=== PATIENT | female | born 1995 | race Caucasian/White ===

== ENCOUNTER → 2024-10-16 | Outpatient (CLI) | payer OTHER, SELFPAY ==
[2024-10-16 15:11] LABS: Hematocrit 40.7 % (37-47); Hemoglobin 13.9 g/dL (12.0-15.0); Mean Corp Hgb Conc 34.2 g/dL (32-36); Mean Corpuscular Hgb 32.1 pg (27.0-32.0); Mean Platelet Vol. 12.1 fl (6.2-12.0); Platelet Count 183 K/mm3 (150-450); RBC Distribution Width CV 11.7 % (11.6-14.6); RBC Distribution Width SD 39.9 fl (35.1-43.9); Red Blood Count 4.33 M/mm3 (4.2-5.4); White Blood Count 3.6 K/mm3 (4.4-11.0)
== END | disposition home or self-care (01) ==
LOC: BWCLAB 13:46
PROVIDERS: PCP Family Medicine; Referring Provider Obstetrics & Gynecology; Visit Provider Obstetrics & Gynecology
DX: Z01.818 Encounter for other preprocedural examination (principal)
CPT/HCPCS: 36415; 85027; 86850; 86900; 86901

== ENCOUNTER 2024-10-27 09:36 | Day surgery (SDC) | payer OTHER, SELFPAY ==
[2024-10-27] VITALS (9 sets, daily range): BP systolic 84–122; BP diastolic 45–84; PULSE 85–96; RESP 16–20; TEMP 36.2–36.8; O2SAT 97–100; BMI 22.4
--- NOTE | 2024-10-27 10:42 | PRE.ANES_ITS ---
ASA Classification* ASA Classification ASA Classification: 2 Assessment & Plan Anesthesia* Anesthesia Assessment Anesthesia Assessment: Discussed sedation and/or anesthesia options, risks, benefits, and alternatives with patient/parents/legal guardian/POA. Questions invited. The patient/parents/legal guardian/POA seems to understand and agrees to proceed with anesthesia plan. Reviewed the physical assessment, medical history, allergy history and patient home medications list prior to surgery/procedure/anesthetic and documented any changes. Performed airway and anesthesia risk assessments. Anesthesia Type Anesthesia Type: MAC History Source History Obtained from:: Patient and Chart Anesthesia Focused Assessment* Temperature: 97.8 F Pulse Rate: 92 Blood Pressure: 110/77 Respiratory Rate: 16 Pulse Ox: 100 Oxygen Delivery Method: Room Air Airway Assessment Mouth opens: 2 cm Mallampati Score: IV Teeth Condition: Intact Neck Range of motion (ROM): Full ROM Comment: Patient has a short temporo-mandibular distance Focused Labs Anesthesia Preop lab: CBC WBC 3.6 K/mm3 (4.4-11.0) L 10/16/24 13:47 RBC 4.33 M/mm3 (4.2-5.4) 10/16/24 13:47 Hgb 13.9 g/dL (12.0-15.0) 10/16/24 13:47 Hct 40.7 % (37-47) 10/16/24 13:47 Plt Count 183 K/mm3 (150-450) 10/16/24 13:47 CHEMISTRY COAG Urine Test Negative Negative 10/27/24 10:09 Pre-Assessment Diagnosis/Proposed Procedure Planned Operative Procedure(s): PELVIC EXAM UNDER ANESTHESIA PARTIAL HYMENECTOMY Anesthesia History 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 When Was Last Pacemaker Check QUESTION #4 FULL TEXT: You/Your Family Experience fever (hyperthermia) with Anesthesia Last Oral Intake Last Oral intake: Last Oral Intake NPO since 00:00 10/27/24 10:22 Meds taken in AM with sips of water? Meds patient instructed to take am of surgery PONV PONV - mortgage servicing specialist: PONV - mortgage servicing specialist Female Yes 10/13/24 09:56 HX of Motion Sickness No 10/13/24 09:56 HX of N/V After Surgery No 10/13/24 09:56 Non-Smoker Yes 10/13/24 09:56 Duration of Surgery greater No 10/13/24 09:56 than 60 minutes Number of Risk Factors 2 10/13/24 09:56 PONV Score Moderate Risk 10/13/24 09:56 Height & Weight Height & Weight: Anesthesia: Height & Weight Height 5 ft 2 in 10/27/24 10:22 Weight: 55.792 kg 10/27/24 10:22 Body Mass Index (BMI) 22.4 10/27/24 10:22 Respiratory Assessment Respiratory Assessment - mortgage servicing specialist: Respiratory Tract Infection Hx - mortgage servicing specialist Hx Respiratory Tract Infection No 10/13/24 09:56 STOP Sleep Apnea STOP Sleep Apnea - mortgage servicing specialist: STOP Sleep Apnea - mortgage servicing specialist Hx Hypertension No 10/13/24 09:56 Hx Sleep Apnea No 10/13/24 09:56 CPAP BIPAP Do you snore loudly (louder No 10/13/24 09:56 than talking or can be heard Do you often feel tired/ No 10/13/24 09:56 fatigued/ sleepy during daytime? Has anyone observed you stop No 10/13/24 09:56 breathing during sleep? STOP Results Negative 10/13/24 09:56 QUESTION #5 FULL TEXT : Do you snore loudly (louder than talking or can be heard through closed doors)? Tobacco Use History Tobacco Use History - mortgage servicing specialist: Tobacco Use History - mortgage servicing specialist Tobacco Use Smoking Status Never smoker 10/13/24 09:56 Hx Tobacco Use No 10/13/24 09:56 Years Smoking Packs Smoked per Day Smoking Cessation Date was within the last 15 years Hx Smoking Cessation Date Hx Smoking Cessation Counseling Hematologic Medial History Hematologic Hx - mortgage servicing specialist: Hematologic Medical Hx - rn documentation Hx of Blood Transfusion No 10/13/24 09:56 Hx of Transfusion in last 3 No 10/13/24 09:56 Months Date of Last Transfusion (if within last 3 months) Ever experience any problems No 10/13/24 09:56 with transfusion(s)? Specify any problems Hx of Preganancy in last 3 No 10/13/24 09:56 Months Nurse Filling Out Transfusion DSCHRIBER 10/13/24 09:56 & Questions: Date: 10/13/24 10/13/24 09:56 Time: 09:58 10/13/24 09:56 Patient unable to answer at this time (ie. confused, unrespo /Reproduction History /Reproductive History - mortgage servicing specialist: /Reproductive Hx- mortgage servicing specialist Hx Now No 10/13/24 09:56 Gestational Age (in weeks): EDC: Hx Hx Para Hx Section SAB No 10/16/24 13:19 PFSH Medical History Anxiety Depression Anemia Easy bruising Migraine headache Non-smoker Hypoglycemia Home Medications ?Medication ?Instructions ?Recorded ?Last Taken ?Type escitalopram oxalate 5 mg tablet 5 mg PO QDAY 07/22/24 10/26/24 History (Lexapro) Allergy/AdvReac Type Severity Reaction Status Date / Time No Known Allergies Allergy Verified 10/27/24 10:21 Family History Grandmother Diabetes Grandfather Diabetes Surgical History History of open heart surgery Social History adopted: No current occupational status: unemployed sexually active: Yes Smoking Status: Never smoker alcohol intake: never substance use type: does not use caffeine: No seatbelt use: always do you feel safe at home: Yes additional social history: - Star Review of Systems (Anesthesia) ROS Narrative System reviewed and no additional complaints, except as documented.
--- NOTE | 2024-10-27 11:45 | HP.PCM_ITS ---
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: No Is patient in pain?: No Feel stressed/tense/nervous/anxious/difficulty sleeping: not at all Allergies No Known Allergies Allergy (Verified 10/16/24 13:20) Medications ?Medication ?Instructions ?Recorded ?Confirmed ?Type escitalopram oxalate 5 mg tablet 5 mg PO QDAY 07/22/24 10/16/24 History (Lexapro) Is last menstrual period known: Yes Last Menstrual Period: 08/31/24 Post menopausal: No Patient : No : No PFSH Medical History Anxiety Depression Anemia Easy bruising Migraine headache Non-smoker Hypoglycemia Surgical History History of open heart surgery Family History Grandmother DiabetesGrandfather Diabetes Social History adopted: No current occupational status: unemployed sexually active: Yes Smoking Status: Never smoker alcohol intake: never substance use type: does not use caffeine: No seatbelt use: always do you feel safe at home: Yes additional social history: - Star VALE partial hymenectomy Details: ARSALAN BECERRA is a 28 year old who presents for preop visit. SHe has a history of dyspareunia, intact hymenal ring. she has been tryingt o have intercourse for the last year with her and has been unable to have penetrative relations. she has never been able to use tmapons and has never had a pelvic exam. she has never had penetrative intercourse before. she has heavy painful menses worsening over the years, lasting 5 days, monthly Female Reproductive History Last Menstrual Period: 08/31/24 History 0 Elective abortions Hx Para 0 Spontaneous abortions Hx # Term Pregnancies Ectopic pregnancies Hx # Pregnancies Multiple births # of living children 0 ROS Const Constitutional: Denies fatigue, fever(s), headache(s), increased appetite, poor appetite, weight gain or weight loss Cardio Card: Denies chest pain Resp Resp: Denies cough or dyspnea GI GI: Reports as per HPI; Denies abdominal pain, constipation, nausea or vomiting : Reports as per HPI; Denies difficulty voiding, dysuria, nipple discharge, urinary frequency, urinary incontinence, urinary hesitancy, urinary urgency, vaginal discharge, vaginal dryness, vaginal odor or vaginal pruritus Skin Skin/Breast: Denies change in hair, breast mass, breast pain, breast skin changes or nipple discharge Exam Const General: cooperative, healthy appearing, comfortable, no acute distress and well developed Nutritional Appearance: average body habitus Orientation: alert HENMT Head: normal to inspection and normocephalic Neck Neck: normal visual inspection and trachea midline Thyroid: thyroid normal Resp Effort & Inspection: normal respiratory effort GI Inspection: normal to inspection and non-distended Palpation: soft and no hepatosplenomegaly External Female Exam: abnormal external appearance (very narrow opening wtih guarding, hypertonus), normal appearance of the urethra and other (possible extra tissue but unclear due to limited exam) Urethra: normal appearance of the urethra Skin General: no rashes or lesions noted Coding Level of Care Code No Charge Diagnoses Dyspareunia due to medical condition in female N94.19 Pelvic floor dysfunction in female M62.89 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 recommend PEUA and partial hymenectomy, PFPT referral (2) Pelvic floor dysfunction in female: Status: Acute Comment: PFPT referral (3) Intact hymenal ring: Status: Acute Comment: plan surgical evaluation Plan After discussing the patient's diagnosis and treatment plan options, patient wishes to proceed with surgical management. I have discussed with the patient the risks, benefits, and alternatives of the procedure which include but are not limited to risks of anesthesia, bleeding, infection, possible damage to bowel, bladder, or surrounding vasculature which could lead to additional surgery to evaluate any complications. Patient agrees to procedure and wishes to proceed. ACOG/uptodate references given for additional information regarding procedure. UPDATE- I have seen the patient and performed any clinically relevant updates to the history and physical exam. Layla Allen MD
[2024-10-27] MEDS: Estrogens,Conj. 1 Tube 1 DOSE (13:15)
[2024-10-27] MEDS: Lidocaine 1% (20 ml mdv) 20 ML Vial (13:15)
--- NOTE | 2024-10-27 13:36 | PCM.POST.ANE ---
Anesthesia: Postop Eval I Current Vital Signs Temperature: 97.2 F Pulse Rate: 86 Blood Pressure: 84/45 Respiratory Rate: 20 Pulse Ox: 98 Oxygen Delivery Method: Room Air Assessment Airway patent: Yes Spontaneous unlabored respirations: Yes Mental status: Asleep nausea: No Vomiting: No Anesthesia Complication: No Fluid Hydration Crystalloid volume administer (ml): 30 Total IV fluid infused: 30 Progress Note Anesthesia document: Postop Eval 1 completed: Yes
--- NOTE | 2024-10-27 13:37 | OP.PCM_ITS ---
Problems Associated Problem List Diagnoses (1) Pelvic floor dysfunction in female: (2) Dyspareunia due to medical condition in female: Procedures Urinary/Genital [id number]: 31891 PARTIAL HYMENECTOMY OR REVISION Operative Report (Standard) Operative Information Date of Procedure: 10/27/24 Pre-Operative Diagnosis: see problem list Post-Operative Diagnosis: same Surgery/Procedure Performed: partial hymenectomy auto motor mechanic: No Type of Anesthesia: MAC RN Documented Start/Stop Times: Operation Date: 10/27/24 11:15 Case Time Into Pre-Op 10/27/24 09:54 Out of Pre-Op 10/27/24 12:28 Anesthesia Start 10/27/24 12:32 Into Room 10/27/24 12:32 Procedure Start 10/27/24 12:57 Procedure End 10/27/24 13:28 Anesthesia End 10/27/24 13:31 Out of Room 10/27/24 13:31 Into Recovery 10/27/24 13:32 Out of Recovery 10/27/24 13:56 Into Phase II Recovery 10/27/24 14:00 Out of Phase II 10/27/24 14:38 Procedure Start Time: 12:57 Procedure Stop Time: 13:28 Select all DRAINS/GRAFTS/IMPLANTS that apply: None (vides drained at beginning) Estimated Blood Loss: 25 Specimen collected: No Description of surgery: Patient was taken to the operating room and placed under MAC anesthesia pelvic exam was performed and intact hymen with narrow vagina was noted. Incisions were made at 4 and 8:00 and 10:00 in the hymen to release and open the hymenal ring. Too much tissue was noted posteriorly and therefore part of the hymen was removed posteriorly and interrupted stitches were placed along the areas of incision passage of 1-1/2 fingers were able to be able to introduced however vaginal narrowing persisted which was suspected due to anatomy and pelvic floor musculature which will be addressed in the future with pelvic floor physical therapy. Pap smear was performed. Hemostasis was noted and no other abnormalities were seen. Patient was awoken and taken recovery in stable condition. Estrogen cream was applied Surgical Findings: intact hymen Complications Complications: No
--- NOTE | 2024-10-27 13:38 | DCINST_ITS ---
Discharge Instructions Diet Discharge Diet: No restrictions DC O2, CPAP, BIPAP needs Home O2 Discharge instructions: No Dressing / Incision Discharge Activity: Return to Normal Activity, May Shower and May Take a Tub Bath (after 1 week) May resume sexual activity in: 4-6 weeks Weight Bearing Status: Weight bearing as tolerated Lifting Restrictions: none Dressing / Incision Call your doctor if you observe: Fever of 101 or Higher, Using more than 1 pad per hour, Shortness of breath and Uncontrolled pain Follow Up Care Please Follow Up With: Layla Allen MD When: Call [phone] to schedule appointment. Test Results: Test results from this visit will be discussed in further detail at your follow- up appointment, if applicable. Discharge Plan Admission Attending Provider: Layla Allen Primary Care Provider: Bhargav Jernigan Instructions Print Language: Turkmen Discharge Orders/Prescriptions Prescriptions: New oxycodone-acetaminophen [Percocet] 5-325 mg tablet 1 tab PO Q6H PRN (Reason: pain) 7 Days Qty: 10 0RF naproxen 500 mg tablet 500 mg PO BID PRN PRN (Reason: Pain) Qty: 30 1RF No Action escitalopram oxalate [Lexapro] 5 mg tablet 5 mg PO QDAY Referrals / Follow Up: Bhargav Jernigan DO [Primary Care Provider] - Disposition Disposition (needs filled in before D/C Order can be placed): Home, Self Care
--- NOTE | 2024-10-27 17:03 | POSTOPAN2_ITS ---
Anesthesia Postop Eval I Sum Postop Eval Completion status Anesthesia document: Postop Eval 1 completed: Yes Anesthesia Postop Eval I Summary Anesthesia Postop Eval I Summary: Anesthesia Postop Eval I: Assessment Summary Airway patent Yes 10/27/24 13:38 SENIOR [email or web address] Spontaneous unlabored Yes 10/27/24 13:38 SENIOR MECHANICAL [email or web address].[email or web address] respirations Mental status Asleep 10/27/24 13:38 SENIOR MECHANICAL [email or web address] nausea No 10/27/24 13:38 SENIOR MECHANICAL [email or web address].[email or web address] Vomiting No 10/27/24 13:38 SENIOR MECHANICAL [email or web address] Anesthesia Postop Eval I: Fluid Summary Crystalloid volume administer 30 10/27/24 13:38 SENIOR MECHANICAL [email or web address].[email or web address] (ml) Colloids volume administered ( ml) Blood Product volume administered (ml) Total IV fluid infused 30 10/27/24 13:38 SENIOR MECHANICAL [email or web address].[email or web address] Anesthesia Postop Eval I: Summary Notes Anesthesia Complication No 10/27/24 13:38 SENIOR MECHANICAL [email or web address].[email or web address] Anesthesia Complication Comment: Post-operative progress note Anesthesia: Postop Eval II Evaluation Mental status: Awake and Calm Pain Level: 1 nausea: No Vomiting: No Complications Anesthesia Complication: No
--- NOTE | 2024-10-27 17:03 | PCM.POSTANE2 ---
Anesthesia Postop Eval I Sum Postop Eval Completion status Anesthesia document: Postop Eval 1 completed: Yes Anesthesia Postop Eval I Summary Anesthesia Postop Eval I Summary: Anesthesia Postop Eval I: Assessment Summary Airway patent Yes 10/27/24 13:38 [email or web address] Spontaneous unlabored Yes 10/27/24 13:38 WILDLIFE [email or web address] respirations Mental status Asleep 10/27/24 13:38 WILDLIFE [email or web address] nausea No 10/27/24 13:38 WILDLIFE REHABILITATOR.[email or web address] Vomiting No 10/27/24 13:38 WILDLIFE [email or web address].[email or web address] Anesthesia Postop Eval I: Fluid Summary Crystalloid volume administer 30 10/27/24 13:38 WILDLIFE [email or web address] (ml) Colloids volume administered ( ml) Blood Product volume administered (ml) Total IV fluid infused 30 10/27/24 13:38 WILDLIFE [email or web address] Anesthesia Postop Eval I: Summary Notes Anesthesia Complication No 10/27/24 13:38 WILDLIFE [email or web address].[email or web address] Anesthesia Complication Comment: Post-operative progress note Anesthesia: Postop Eval II Evaluation Mental status: Awake and Calm Pain Level: 1 nausea: No Vomiting: No Complications Anesthesia Complication: No
[2024-11-04 09:08] LABS: HPV APTIMA, High Risk Negative (Negative)
[2024-11-04 09:56] LABS: HPV Reflexed? YES, CHARGE PATIENT
== END 2024-10-27 14:38 | disposition home or self-care (01) ==
LOC: SDC 09:44 → AC 09:46
PROVIDERS: PCP Family Medicine; Referring Provider Obstetrics & Gynecology; Visit Provider Obstetrics & Gynecology
PROC: (CPT 57410; principal; 2024-10-27 11:05)
DX: N94.10 Unspecified dyspareunia (principal); N89.6 Tight hymenal ring
CPT/HCPCS: 56700; 00940; 86850; 86900; 86901; 87624; 88175; A4216; G0145; J2405

== ENCOUNTER 2024-11-16 14:00 | Outpatient (RCR) | payer OTHER, SELFPAY ==
[2024-10-27 10:27] LABS: Internal QC Validated? YES +Cl - CLEAR BKGD; Pregnancy, Urine Negative Negative
== END 2024-11-16 19:00 | disposition home or self-care (01) ==
LOC: PT 14:00
PROVIDERS: PCP Family Medicine; Referring Provider Obstetrics & Gynecology; Visit Provider Obstetrics & Gynecology
DX: N94.10 Unspecified dyspareunia (principal)
CPT/HCPCS: 81025

== ENCOUNTER → 2025-08-25 | Outpatient (CLI) | payer OTHER, SELFPAY | END | disposition home or self-care (01) | LOC: LABSPEC 16:42 | PROVIDERS: PCP Family Medicine; Visit Provider Nurse Practitioner Family | DX: Z12.4 Encounter for screening for malignant neoplasm of cervix (principal) | CPT/HCPCS: 88175; G0145 ==

== ENCOUNTER → 2025-09-17 | Outpatient (CLI) | payer OTHER, SELFPAY ==
--- OUTSIDE RECORDS SUMMARY | 2025-09-17 09:47 | XMS RPT_ITS | CCD ---
Author Organization [facility]ini[facility] Care Team Providers Care Cuff Slitter Name Role Phone Dr. Bhargav Jernigan DO Primary Care Physician Dr. Bhargav Jernigan DO Referring Provider Lora ARCHITECTURAL COATING FINISHER-C, Talia Attending Physician Bhargav Jernigan Primary Care Unavailable Talia Paulino Attending Unavailable Fracasso, Bhargav Referring Unavailable Marcanthony, Layla Consulting Unavailable Marcanthony, Layla Attending Unavailable Fracasso, Bhargav Primary Care Unavailable Marcanthony, Layla Referring Unavailable Fracasso, Bhargav Primary Care Unavailable Marcanthony, Layla Attending Unavailable Fracasso, Bhargav Referring Unavailable Marcanthony, Layla Attending Unavailable Fracasso, Bhargav Primary Care Unavailable Fracasso, Bhargav Referring Unavailable Fracasso, Bhargav Primary Care Unavailable Marcanthony, Layla Attending Unavailable Fracasso, Bhargav Referring Unavailable Fracasso, Bhargav Primary Care Unavailable Talia Paulino Attending Unavailable Fracasso, Bhargav Referring Unavailable Marcanthony, Layla Attending Unavailable Marcanthony, Layla Referring Unavailable Fracasso, Bhargav Primary Care Unavailable Marcanthony, Layla Attending Unavailable Fracasso, Bhargav Primary Care Unavailable Marcanthony, Layla Referring Unavailable Marcanthony, Layla Attending Unavailable Fracasso, Bhargav Primary Care Unavailable Marcanthony, Layla Referring Unavailable Talia Paulino Attending Unavailable Delon, Bhargav Primary Care Unavailable Medications Current Medications Medication Drug Class(es) Dates Sig (Normalized) Sig (Original) [place] (Nk) (1 source) Start: 08-04-2025 [place] (Nk) A ctive August 04, 2025 12:00am Completed/Discontinued Medications Medication Drug Class(es) Dates Sig (Normalized) Sig (Original) acetaminophen 325 mg / oxyCODONE hydrochloride 5 mg oral tablet (1 source) Opioid Agonist Start: 10-27-2024 End: 11-16-2024 Oxycodone-Acetamin ophen (Percocet) 5-325 mg tablet Discontinued 1 {tbl} PO EVERY 6 HOURS as needed for pain 10 7 0 October 27, 2024 November 16, 2024 12:26pm Pelvic floor dysfunction in female Other specified disorders of muscle escitalopram 5 mg oral tablet (1 source) Serotonin Reuptake Inhibitor Start: 07-22-2024 End: 08-04-2025 take 1 tablet by mouth once daily Escitalopram Oxalate (Lexapro) 5 mg tablet Discontinued 5 mg PO daily July 22, 2024 12:00am August 04, 2025 10:13am naproxen 500 mg oral tablet (1 source) Nonsteroidal Anti-inflammatory Drug Start: 10-27-2024 End: 11-16-2024 take 1 tablet by mouth twice daily as needed for pain Naproxen 500 mg tablet Discontinued 500 mg PO TWICE DAILY NEEDED as needed for Pain 30 1 October 27, 2024 1:00am November 16, 2024 12:26pm Problems Active Problems Problem Classification Problem Date Documented Da te Episodic/Chronic Other connective tissue disease (1 source) Female pelvic floor dysfunction; Translations: [Other specified disorders of muscle] 09-14-2024 Episodic Comment on above: PFPT referral Other female genital disorders (1 source) 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; Translations: [Other specified dyspareunia] 11-23-2024 Chronic Comment on above: s/p hymenectomy Other female genital disorders (1 source) Other specified dyspareunia; Translations: [Other specified dyspareunia] Onset: 03-11-2025 Chronic Other female genital disorders (1 source) Unspecified dyspareunia; Translations: [Unspecified dyspareunia] Onset: 11-17-2024 Chronic Other female genital disorders (1 source) Tight hymenal ring; Translations: [Tight hymenal ring] 09-14-2024 Episodic Comment on above: plan surgical evalua tion Other screening for suspected conditions (not mental disorders or infectious disease) (1 source) Encounter for screening for malignant neoplasm of cervix; Translations: [Encounter for screening for malignant neoplasm of cervix] Onset: 08-30-2025 Episodic Past or Other Problems Problem Classification Problem Date Documented Da te Episodic/Chronic Other connective tissue disease (1 source) Other specified disorders of muscle; Translations: [Other specified disorders of muscle] Onset: 03-11-2025 Episodic Other female genital disorders (1 source) Tight hymenal ring; Translations: [Tight hymenal ring] Onset: 10-16-2024 Episodic Results Test Name Value Interpretation Reference Range Facility PAP I-G w/rfx hrHPV-Aptimaon 09-01-2025 ADEQ Comment Normal . [facility] Comment on above: Order Comment: Speci men Comment: [id number] Specimen Comment: No. of containers..01 ThinPrep Vial Result Comment: Sati sfactory for evaluation. Endocervical and/or squamous metaplastic cells (endocervical component) are present. Performed By: #### L 7400.0353 #### [facility] [address] [place], [address] COMM . Normal . [facility] Comment on above: Order Comment: Speci men Comment: [id number] Specimen Comment: No. of containers..01 ThinPrep Vial Performed By: #### L 7400.0353 #### [facility] [address] [place], [place], [id number] COMMENT TNP Normal . [facility] Comment on above: Order Comment: Speci men Comment: [id number] Specimen Comment: No. of containers..01 ThinPrep Vial Result Comment: The Thin Prep(R) Briquetting Machine Operator was unable to read this specimen. Therefore a manual review was performed. Performed By: #### L 7400.0353 #### [facility] [address] [place], [place], [id number] DIAG Comment Normal . [facility] Comment on above: Order Comment: Speci men Comment: [id number] Specimen Comment: No. of containers..01 ThinPrep Vial Result Comment: NEGA TIVE FOR INTRAEPITHELIAL LESION OR MALIGNANCY. Performed By: #### L 7400.0353 #### [facility] [address] [place], [place], [id number] HPV RFLX Comment Normal . [facility] Comment on above: Order Comment: Speci men Comment: [id number] Specimen Comment: No. of containers..01 ThinPrep Vial Result Comment: The HPV DNA reflex criteria were not met with this specimen result therefore, no HPV testing was performed. Performed at: [address] [id number] Unhairing Machine Operator: Lexy Rodriguez PhD, Phone: [phone] Performed at: [facility] [id number] Unhairing Machine Operator: Ayala Moise MD, Phone: [phone] Performed By: #### L 7400.0353 #### [facility] [address] [place], [place], [address] PAPSMR Comment Normal . [facility] Comment on above: Order Comment: Speci men Comment: [id number] Specimen Comment: No. of containers..01 ThinPrep Vial Result Comment: The Pap smear is a screening test designed to aid in the detection of premalignant and malignant conditions of the uterine cervix. It is not a diagnostic procedure and should not be used as the sole means of detecting cervical cancer. Both false-positive and false-negative reports do occur. Performed By: #### L 7400.0353 #### [facility] [address] [place], [place], [address] PERFORM Comment Normal . [facility] Comment on above: Order Comment: Speci men Comment: [id number] Specimen Comment: No. of containers..01 ThinPrep Vial Result Comment: Chelo Galindo, Cosmetic Account Coordinator (ASCP) Performed By: #### L 7400.0353 #### [facility] [address] [place], [place], [id number] [facility] [facility] Visit Reporton 08-25-2025 [facility] Office Visit Report [facility] [address], [address] [place] [address] OFFICE VISIT Date of Service: 08/25/25 MR#: [id number] Acct: [id number] Name: ARSALAN BECERRA Rep #: [id number] : 1995 Provider: JUAN Andrade Age/Sex: 29/F Location: [facility] Status: Signed Intake Vital Signs 08/04/25 10:05 08/25/25 14:27 08/25/25 14:28 Height 5 ft 2 in 5 ft 2 in 5 ft 2 in Weight: 129 lb 7 oz 131 lb 1 oz BMI 23.6 23.9 BP 115/81 H 111/75 Intake Visit Reasons: Pap Only Copay $30 Center Rep Required: No Is patient in pain?: No Allergies No Known Allergies Allergy (Verified 08/25/25 14:27) Medications ???Medication ???Instructions ???Recorded ???Confirmed ???Type NK 08/04/25 08/25/25 History Is last menstrual period known: Yes Last Menstrual Period: 08/03/25 Post menopausal: No Patient : No : No PFSH Medical History Anxiety Depression Anemia Easy bruising Migraine headache Non-smoker Hypoglycemia Surgical History History of open heart surgery Family History Grandmother Diabetes Grandfather Diabetes Social History adopted: No current occupational status: unemployed sexually active: Yes Smoking Status: Never smoker alcohol intake: never substance use type: does not use caffeine: No seatbelt use: always do you feel safe at home: Yes additional social history: - Star HPI Pap Only Copay $30 Details: ARSALAN BECERRA is a 29 year old who presents for PAP only; No longer on menses. Patient reports she started with a rash on her last menses; appeared like red itchy bumps down her left leg. Similar to bug bites. Was started on atb from PCP. Since resolved but curious if related to menses. Female Reproductive History Last Menstrual Period: 08/03/25 History 0 Elective abortions Hx Para 0 Spontaneous abortions Hx # Term Pregnancies Ectopic pregnancies Hx # Pregnancies Multiple births # of living children 0 ROS Const Constitutional: Denies chills, fatigue or fever(s) Cardio Card: Reports system reviewed and no additional complaints, except as documented Resp Resp: Reports system reviewed and no additional complaints, except as documented GI GI: Reports system reviewed and no additional complaints, except as documented : Reports system reviewed and no additional complaints, except as documented; Denies vaginal discharge, vaginal dryness, vaginal odor or vaginal pruritus Skin Skin/Breast: Reports as per HPI Exam Const General: cooperative, healthy appearing, comfortable, no acute distress, well groomed and well hydrated Nutritional Appearance: well nourished Orientation: alert, awake and oriented x3 Resp Effort Inspection: normal respiratory effort, able to speak in complete sentences and symmetric chest movement GI Inspection: normal to inspection Palpation: soft and no hepatosplenomegaly General: bladder normal to palpation External Female Exam: normal external appearance and normal appearance of the urethra Urethra: normal appearance of the urethra Speculum Exam - Vagina: normal appearance of the vagina, normal vaginal discharge, no lesions and nontender Speculum Exam - Cervix: normal appearance of the cervix, no lesions and no masses Bimanual Exam- Vagina Uterus: normal bimanual exam, uterine size normal, bladder normal to palpation, normal palpation and non-tender Bimanual Exam- Adnexa, other: normal adnexae, no masses, normal and non-tender Pelvic Support: normal Skin General: no rashes or lesions noted Neuro General: patient alert, patient awake, patient oriented x3 and moves all extremities Psych Appearance: grossly normal Mental Status: mental status grossly normal Affect: normal affect Speech and Movement: speech and movement normal Attitude: cooperative Coding Level of Care Code Established Pt Off vis,est,level 3 Patient Type Established Diagnoses Screening for cervical cancer Z12.4 Assessment and Plan Assessment and Plan (1) Screening for cervical cancer: Status: Acute Plan: PAP completed today. Call with results. Orders: Orders PAP I-G w/rfx hrHPV-Aptima Today Z12.4 - Encounter for screening for malignant neoplasm of cervix Plan If raised red pustules present to leg with next menses to call office. None on exam today. 08/25/25 1444 Date Talia Adair Signature: Date (if applicable) (more content not included)... Normal [facility] Visit Reporton 08-04-2025 [facility] Office Visit Report 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: No Is patient in pain?: No Allergies No Known Allergies Allergy (Verified 08/04/25 10:05) Medications ???Medication ???Instructions ???Recorded ???Confirmed ???Type NK 08/04/25 08/04/25 History Is last menstrual period known: Yes Last Menstrual Period: 08/03/25 Post menopausal: No Patient : No : No Control Method: none PFSH Medical History Anxiety Depression Anemia Easy bruising Migraine headache Non-smoker Hypoglycemia Surgical History History of open heart surgery Family History Grandmother Diabetes Grandfather Diabetes Social History adopted: No current occupational status: unemployed sexually active: Yes Smoking Status: Never smoker alcohol intake: never substance use type: does not use caffeine: No seatbelt use: always do you feel safe at home: Yes additional social history: - Star History 0 Elective abortions Hx Para 0 Spontaneous abortions Hx # Term Pregnancies Ectopic pregnancies Hx # Pregnancies Multiple births # of living children 0 HPI Encounter for routine gynecological examination Details: ARSALAN DAMON is a 29 year old who presents for annual exam. She reports since hymenectomy things have improved with intercourse; able to have sex with insertion however reports it still "feels weird". She has not been in PFPT since March. She reports overall improvement however. She states prior to her menses starting she noted some vaginal itching. Last PAP: 2024; unsatisfactory. HPV neg. History of abnormal PAP: no Last mammogram: age 42 History of abnormal mammogram: n/a Colon cancer screening: age 47 Other preventative health care screenings: Dr. Jernigan; PCP Female Reproductive History Last Menstrual Period: 08/03/25 Cycle Length: 21-35 Bleeding Duration: 3 Questions: metrorrhagia: No, sexually active: Yes, dyspareunia: Yes and PCB: No ROS Const Constitutional: Denies chills, fatigue, fever(s), headache(s) or weight loss Eyes Eyes: Denies change in vision ENT ENT: Denies dizziness Resp Resp: Denies cough GI GI: Reports constipation; Denies abdominal pain or nausea : Reports vaginal pruritus (prior to start of menses); Denies difficulty voiding, dysuria, hematuria, nipple discharge, pelvic pain, prolapse symptoms, urinary incontinence, vaginal discharge, vaginal dryness or vaginal odor Skin Skin/Breast: Denies alopecia, rash, breast mass, breast pain, breast skin changes or nipple discharge Neuro Neuro: Denies dizziness Psych Psych: Denies anxiety or depression Endo Endo: Denies cold intolerance, excessive sweating or heat intolerance Exam Const General: cooperative, healthy appearing, comfortable, no acute distress, well groomed and well hydrated Nutritional Appearance: well nourished Orientation: alert, awake and oriented x3 HENMT Head: normal to inspection and normocephalic Ears: hearing grossly normal bilaterally and external ears normal Nose: external nose normal Face and sinus: normal facial exam Eyes General: appearance normal, both eyes and all related structures Neck Neck: normal visual inspection, full ROM and no lymphadenopathy Thyroid: thyroid normal Chest Chest palpation inspection: normal inspection of the chest Breast inspection: normal inspection of the breasts and normal inspection of the axillae Breast palpation: normal palpation of the breasts, normal palpation of the axillae and no axillary lymphadenopathy Resp Effort Inspection: normal respiratory effort, able to speak in complete sentences and symmetric chest movement GI Inspection: normal to inspection Palpation: soft and no hepatosplenomegaly General: deferred (per patient; on menses. ) Skin General: no rashes or lesions noted Neuro General: patient alert, patient awake, patient oriented x3 and moves all extremities Psych Appearance: grossly normal Mental Status: mental status grossly normal Affect: normal affect Speech and Movement: spee (more content not included)... Normal [facility] Visit Reporton 11-16-2024 [place] [facility] Visit Report [facility] [address], [address] [place] [address] OFFICE VISIT Date of Service: 11/16/24 MR#: [id number] Acct: [id number] Name: ARSALAN DAMON Rep #: [id number] : 1995 Provider: Dr. Layla campos MD Age/Sex: 28/F Location: [facility] Status: Signed Intake Vital Signs 10/27/24 10:22 11/16/24 11:24 Height 5 ft 2 in 5 ft 2 in Weight: 129 lb BMI 23.6 BP 109/74 Pulse 72 Pulse Source Monitor Intake Visit Reasons: Post-op Chief Complaint: post op hymenectomy Is patient in pain?: No Allergies No Known Allergies Allergy (Verified 11/16/24 11:26) Medications ???Medication ???Instructions ???Recorded ???Confirmed ???Type escitalopram oxalate 5 mg tablet 5 mg PO QDAY 07/22/24 11/16/24 [facility] Medical History Anxiety Depression Anemia Easy bruising Migraine headache Non-smoker Hypoglycemia Surgical History History of open heart surgery Family History Grandmother Diabetes Grandfather Diabetes Social History adopted: No current occupational status: unemployed sexually active: Yes Smoking Status: Never smoker alcohol intake: never substance use type: does not use caffeine: No seatbelt use: always do you feel safe at home: Yes additional social history: - Star HPI Post-op Details: ARSALAN DAMON is a 28 year old who presents for postop, doing well, tolerated vaginal estrogen therapy. some mild discomfort with sititng but oveall good. stitches dissolved. History 0 Elective abortions Hx Para 0 Spontaneous abortions Hx # Term Pregnancies Ectopic pregnancies Hx # Pregnancies Multiple births # of living children 0 ROS Const Constitutional: Reports system reviewed and no additional complaints, except as documented GI GI: Denies abdominal pain, cramping, nausea or vomiting : Denies pelvic pain, urinary frequency, urinary incontinence, urinary urgency, vaginal discharge, vaginal dryness or vaginal odor Exam Const General: cooperative, healthy appearing, comfortable and no acute distress GI Inspection: normal to inspection Palpation: soft and nontender Other: incisions healed no stitches seen., 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 [facility] Comment on above: Order Comment: Speci men Comment: [id number] Specimen Comment: Source.............Cervix Specimen Comment: Other..............Other Specimen Comment: No. of containers..01 ThinPrep Vial Result Comment: Spec imen processed and examined but unsatisfactory for evaluation of epithelial abnormality because of insufficient cellularity. Performed By: #### L 7400.0377 #### [facility] [address] [place], [address] COMM . Normal . [facility] Comment on above: Order Comment: Speci men Comment: [id number] Specimen Comment: Source.............Cervix Specimen Comment: Other..............Other Specimen Comment: No. of containers..01 ThinPrep Vial Performed By: #### L 7400.0377 #### [facility] [address] [place], [address] COMMENT Comment Normal . [facility] Comment on above: Order Comment: Speci men Comment: [id number] Specimen Comment: Source.............Cervix Specimen Comment: Other..............Other Specimen Comment: No. of containers..01 ThinPrep Vial Result Comment: This liquid based ThinPrep(R) pap test was screened with the use of an image guided system. Performed By: #### L 7400.0377 #### [facility] [address] [place], [place], [id number] DIAG Comment Normal . [facility] Comment on above: Order Comment: Speci men Comment: [id number] Specimen Comment: Source.............Cervix Specimen Comment: Other..............Other Specimen Comment: No. of containers..01 ThinPrep Vial Result Comment: UNSA TISFACTORY FOR EVALUATION. SPECIMEN REPROCESSED FOR INTERPRETATION USING GLACIAL ACETIC ACID (GAA). Performed By: #### L 7400.0377 #### [facility] [address] [place], [place], [address] HPV APTIMA, HR Negative Normal Negative [facility] Comment on above: Order Comment: Speci men Comment: [id number] Specimen Comment: Source.............Cervix Specimen Comment: Other..............Other Specimen Comment: No. of containers..01 ThinPrep Vial Result Comment: This nucleic acid amplification test detects fourteen high- risk HPV types (16,18,31,33,35,39,45,51,52,56,58,59,66,68) without differentiation. Performed at: [address] [id number] Unhairing Machine Operator: Ayala Moise MD, Phone: [phone] Performed at: =[address] [id number] Unhairing Machine Operator: Ayala Moise MD, Phone: [phone] Performed By: #### L 7400.0377 #### [facility] [address] [place], [place], [address] PAPSMR Comment Normal . [facility] Comment on above: Order Comment: Speci men Comment: [id number] Specimen Comment: Source.............Cervix Specimen Comment: Other..............Other Specimen Comment: No. of containers..01 ThinPrep Vial Result Comment: The Pap smear is a screening test designed to aid in the detection of premalignant and malignant conditions of the uterine cervix. It is not a diagnostic procedure and should not be used as the sole means of detecting cervical cancer. Both false-positive and false-negative reports do occur. Performed By: #### L 7400.0377 #### [facility] [address] [place], [place], [address] PERFORM Comment Normal . [facility] Comment on above: Order Comment: Speci men Comment: [id number] Specimen Comment: Source.............Cervix Specimen Comment: Other..............Other Specimen Comment: No. of containers..01 ThinPrep Vial Result Comment: Sherin Archibald, Astronomy Professor (ASCP) Performed By: #### L 7400.0377 #### [facility] [address] [place], [place], [address] QC REV Comment Normal . [facility] Comment on above: Order Comment: Speci men Comment: [id number] Specimen Comment: Source.............Cervix Specimen Comment: Other..............Other Specimen Comment: No. of containers..01 ThinPrep Vial Result Comment: Sajan Mccoy, Supervisory Astronomy Professor (ASCP) Performed By: #### L 7400.0377 #### [facility] [address] [place], [place], [address] RECOMM Comment Normal . [facility] Comment on above: Order Comment: Speci men Comment: [id number] Specimen Comment: Source.............Cervix Specimen Comment: Other..............Other Specimen Comment: No. of containers..01 ThinPrep Vial Result Comment: Sugg est follow up as clinically appropriate. Performed By: #### L 7400.0377 #### [facility] [address] [place], [place], [address] Discharge Instructionon 0 Discharge Instruction [facility] Medical Records Department [address] [place] [address] Instructions for Home/Discharge Instructions 10/27/24 1338 MR#: [id number] Acct: [id number] Name: ARSALAN DAMON Rep #: [id number] : 1995 28 From: Layla Allen MD PCP: Dr. Bhargav Jernigan DO Status:REG SDC Discharge Instructions Diet Discharge Diet: No restrictions DC O2, CPAP, BIPAP needs Home O2 Discharge instructions: No Dressing / Incision Discharge Activity: Return to Normal Activity, May Shower and May Take a Tub Bath (after 1 week) May resume sexual activity in: 4-6 weeks Weight Bearing Status: Weight bearing as tolerated Lifting Restrictions: none Dressing / Incision Call your doctor if you observe: Fever of 101 or Higher, Using more than 1 pad per hour, Shortness of breath and Uncontrolled pain Follow Up Care Please Follow Up With: Layla Allen MD When: Call [phone] to schedule appointment. Test Results: Test results from this visit will be discussed in further detail at your follow-up appointment, if applicable. Discharge Plan Admission Attending Provider: Layla Allen Primary Care Provider: Bhargav Jernigan Instructions Print Language: Armenian Discharge Orders/Prescriptions Prescriptions: New oxycodone-acetaminophen [Percocet] 5-325 mg tablet 1 tab PO Q6H PRN (Reason: pain) 7 Days Qty: 10 0RF naproxen 500 mg tablet 500 mg PO BID PRN PRN (Reason: Pain) Qty: 30 1RF No Action escitalopram oxalate [Lexapro] 5 mg tablet 5 mg PO QDAY Referrals / Follow Up: Bhargav Jernigan DO [Primary Care Provider] - Disposition Disposition (needs filled in before D/C Order can be placed): Home, Self Care 10/27/24 1340 Layla Allen MD CC: Dr. Bhargav Jernigan DO Signed ADDENDUM by Dr. Layla Allen MD on 10/27/24 at 1341 use the vaginal estrogen cream nightly to opening of vagina until tube is gone. use aquaphor or a and d ointment to area of vaginal opening throughout the day wheneve ryou use the bathroom or have any irritation 10/27/24 1341 Layla Allen MD cc: Dr. Bhargav Jernigan DO * Signed Normal [facility] MR/POSTOP.ANEon 10-27-2024 MR/POSTOP.[facility] Medical Records Department [address] [place] [address] Anesthesia Postop Eval I 10/27/24 1336 MR#: [id number] Acct: [id number] Name: ARSALAN DAMON Rep #: [id number] : 1995 28 From: Meme Allen CRNA PCP: Dr. Bhargav Jernigan, DO Status[place] [facility] [place] C Location: [place] [address] Anesthesia: Postop Eval I Current Vital Signs Temperature: 97.2 F Pulse Rate: 86 Blood Pressure: 84/45 Respiratory Rate: 20 Pulse Ox: 98 Oxygen Delivery Method: Room Air Assessment Airway patent: Yes Spontaneous unlabored respirations: Yes Mental status: Asleep nausea: No Vomiting: No Anesthesia Complication: No Fluid Hydration Crystalloid volume administer (ml): 30 Total IV fluid infused: 30 Progress Note Anesthesia document: Postop Eval 1 completed: Yes 10/27/24 1338 Date Meme Adair Signature: Date CC: Signed Normal [facility] MR/[id number] 10-27-2024 MR/POSTOPAN2 [facility] Medical Records Department [address] [facility] [place] [address] Anesthesia Postop Eval II 10/27/24 1703 MR#: [id number] Acct: [id number] Name: ARSALAN DAMON Rep #: [id number] : 1995 28 From: Renzo Diaz MD PCP: Dr. Bhargav Jernigan, DO Status:DEP SDC Y Race: C [place] [facility] [place] Postop Eval I Sum Postop Eval Completion status Anesthesia document: Postop Eval 1 completed: Yes Anesthesia Postop Eval I Summary Anesthesia Postop Eval I Summary: Anesthesia Postop Eval I: Assessment Summary Airway patent Yes 10/27/24 13:38 FEEDER OPERATOR.[email or web address] Spontaneous unlabored Yes 10/27/24 13:38 FEEDER OPERATOR.JSWI respirations Mental status Asleep 10/27/24 13:38 FEEDER OPERATOR.JSWI nausea No 10/27/24 13:38 FEEDER OPERATOR.JSWI Vomiting No 10/27/24 13:38 FEEDER OPERATOR.JSWI Anesthesia Postop Eval I: Fluid Summary Crystalloid volume administer 30 10/27/24 13:38 FEEDER OPERATOR.JSWI (ml) Colloids volume administered ( ml) Blood Product volume administered (ml) Total IV fluid infused 30 10/27/24 13:38 FEEDER OPERATOR.JSWI Anesthesia Postop Eval I: Summary Notes Anesthesia Complication No 10/27/24 13:38 FEEDER OPERATOR.JSWI Anesthesia Complication Comment: Post-operative progress note Anesthesia: Postop Eval II Evaluation Mental status: Awake and Calm Pain Level: 1 nausea: No Vomiting: No Complications Anesthesia Complication: No 10/27/24 1705 Date Renzo Diaz MD Cosigner Signature: Date CC: Signed Normal [facility] Operative Reporton 5 Operative Report [facility] Medical Records Department [address] [place] [address] Operative Report 10/27/24 1337 MR#: [id number] Acct: [id number] Name: ARSALAN DAMON Rep #: [id number] : 1995 28 From: Layla Allen MD PCP: Dr. 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 Type of Anesthesia: MAC RN Documented Start/Stop Times: Operation Date: 10/27/24 11:15 Case Time Into Pre-Op 10/27/24 09:54 Out of Pre-Op 10/27/24 12:28 Anesthesia Start 10/27/24 12:32 Into Room 10/27/24 12:32 Procedure Start 10/27/24 12:57 Procedure End 10/27/24 13:28 Anesthesia End 10/27/24 13:31 Out of Room 10/27/24 13:31 Into Recovery 10/27/24 13:32 Out of Recovery 10/27/24 13:56 Into Phase II Recovery 10/27/24 14:00 Out of Phase II 10/27/24 14:38 Procedure Start Time: 12:57 Procedure Stop Time: 13:28 Select all DRAINS/GRAFTS/IMPLANTS that apply: None (vides drained at beginning) Estimated Blood Loss: 25 Specimen collected: No Description of surgery: Patient was taken to the operating room and placed under MAC anesthesia pelvic exam was performed and intact hymen with narrow vagina was noted. Incisions were made at 4 and 8:00 and 10:00 in the hymen to release and open the hymenal ring. Too much tissue was noted posteriorly and therefore part of the hymen was removed posteriorly and interrupted stitches were placed along the areas of incision passage of 1-1/2 fingers were able to be able to introduced however vaginal narrowing persisted which was suspected due to anatomy and pelvic floor musculature which will be addressed in the future with pelvic floor physical therapy. Pap smear was performed. Hemostasis was noted and no other abnormalities were seen. Patient was awoken and taken recovery in stable condition. Estrogen cream was applied Surgical Findings: intact hymen Complications Complications: No 10/27/24 4711 Cosigner Signature (if applicable): CC: Dr. Bhargav Jernigan DO; Dr. Layla Allen MD Signed [facility] PAP IG w/Reflex HR HPV Aptim aon 10-27-2024 DIAG [facility] Comment on above: Result Comment: PROV IDER ORDERED DIFFERENT TEST Performed By: #### L 400.7600 #### [facility] [address] [place], [address] HPV REFLEXED? Normal [facility] Comment on above: Result Comment: PROV IDER ORDERED DIFFERENT TEST Performed By: #### L 400.7600 #### [facility] [address] [place], [address] ,Urineon 10-27-2024 Beta HCG ( test) Ql (U) Negative Normal [facility] Comment on above: Result Comment: Very dilute urine specimens, as indicated by a low specific gravity, may not contain representative phlebotomy services levels of hCG. If is still suspected, a first morning urine specimen should be collected 48 hours later and tested. Performed By: #### L 400.7600 #### [facility] [address] [place], [address] Type AND Screenon 10-27-2024 Ab SCREEN GEL Negative Normal [facility] Comment on above: Order Comment: S Performed By: #### L 400.7600 #### [facility] [address] [place], [address] CBC-Complete Blood Cnt No Di ffon 10-16-2024 Erythrocyte distribution width (RBC) [Ratio] 11.7 % Normal 11.6-14.6 [facility] Comment on above: Performed By: #### B TSPAT, L100.0500 #### [facility] [address] [place], [address] Hematocrit (Bld) [Volume fraction] 40.7 % Normal 37-47 [facility] Comment on above: Performed By: #### B TSPAT, L100.0500 #### [facility] [address] [place], [address] Hemoglobin (Bld) [Mass/Vol] 13.9 g/dL Normal 12.0-15.0 [facility] Comment on above: Performed By: #### B TSPAT, L100.0500 #### [facility] [address] [place], [address] MCH (RBC) [Entitic mass] 32.1 pg High 27.0-32.0 [facility] Comment on above: Performed By: #### B TSPAT, L100.0500 #### [facility] [address] [place], [address] MCHC (RBC) [Mass/Vol] 34.2 g/dL Normal 32-36 [facility] Comment on above: Performed By: #### B TSPAT, L100.0500 #### [facility] [address] [place], [address] MCV (RBC) [Entitic vol] 94.0 fL Normal 81-99 [facility] Comment on above: Performed By: #### B TSPAT, L100.0500 #### [facility] [address] [place], [address] Platelet mean volume (Bld) [Entitic vol] 12.1 fL High 6.2-12.0 [facility] Comment on above: Performed By: #### B TSPAT, L100.0500 #### [facility] [address] [place], [address] Platelets (Bld) [#/Vol] 183 10*3/uL Normal 150-450 [facility] Comment on above: Performed By: #### B TSPAT, L100.0500 #### [facility] [address] [place], [address] RBC (Bld) [#/Vol] 4.33 10*6/uL Normal 4.2-5.4 [facility] Comment on above: Performed By: #### B TSPAT, L100.0500 #### [facility] [address] [place], [address] RDW SD 39.9 fl Normal 35.1-43.9 [facility] Comment on above: Performed By: #### B TSPAT, L100.0500 #### [facility] [address] [place], [address] WBC (Bld) [#/Vol] 3.6 10*3/uL Low 4.4-11.0 [facility] Comment on above: Performed By: #### B TSPAT, L100.0500 #### [facility] [address] [place], [address] [facility] Reporton 10-16-2024 [facility] Visit Report [facility] [address], [address] [place] [address] OFFICE VISIT Date of Service: 10/16/24 MR#: [id number] Acct: [id number] Name: ARSALAN BECERRA Rep #: [id number] : 1995 Provider: Dr. Layla campos MD Age/Sex: 28/F [place] [facility] Status: Signed Intake Vital Signs 09/07/24 09:17 10/16/24 13:17 10/16/24 13:19 Height 5 ft 2 in 5 ft 2 in 5 ft 2 in Weight: 121 lb BMI 22.1 BP 114/78 Intake Visit Reasons: PEUA partial hymenectomy Center Rep Required: No Is patient in pain?: No Feel stressed/tense/nervous/ anxious/difficulty sleeping: not at all Allergies No Known Allergies Allergy (Verified 10/16/24 13:20) Medications ???Medication ???Instructions ???Recorded ???Confirmed ???Type escitalopram oxalate 5 mg tablet 5 mg PO QDAY 07/22/24 10/16/24 History (Lexapro) Is last menstrual period known: Yes Last Menstrual Period: 08/31/24 Post menopausal: No Patient : No : No PFSH Medical History Anxiety Depression Anemia Easy bruising Migraine headache Non-smoker Hypoglycemia Surgical History History of open heart surgery Family History Grandmother Diabetes Grandfather Diabetes Social History adopted: No current occupational status: unemployed sexually active: Yes Smoking Status: Never smoker alcohol intake: never substance use type: does not use caffeine: No seatbelt use: always do you feel safe at home: Yes additional social history: - Star HPI PEUA partial hymenectomy Details: ARSALAN BECERRA is a 28 year old who presents for preop visit. SHe has a history of dyspareunia, intact hymenal ring. she has been tryingt o have intercourse for the last year with her and has been unable to have penetrative relations. she has never been able to use tmapons and has never had a pelvic exam. she has never had penetrative intercourse before. she has heavy painful menses worsening over the years, lasting 5 days, monthly Female Reproductive History Last Menstrual Period: 08/31/24 History 0 Elective abortions Hx Para 0 Spontaneous abortions Hx # Term Pregnancies Ectopic pregnancies Hx # Pregnancies Multiple births # of living children 0 ROS Const Constitutional: Denies fatigue, fever(s), headache(s), increased appetite, poor appetite, weight gain or weight loss Cardio Card: Denies chest pain Resp Resp: Denies cough or dyspnea GI GI: Reports as per HPI; Denies abdominal pain, constipation, nausea or vomiting : Reports as per HPI; Denies difficulty voiding, dysuria, nipple discharge, urinary frequency, urinary incontinence, urinary hesitancy, urinary urgency, vaginal discharge, vaginal dryness, vaginal odor or vaginal pruritus Skin Skin/Breast: Denies change in hair, breast mass, breast pain, breast skin changes or nipple discharge Exam Const General: cooperative, healthy appearing, comfortable, no acute distress and well developed Nutritional Appearance: average body habitus Orientation: alert HENMT Head: normal to inspection and normocephalic Neck Neck: normal visual inspection and trachea midline Thyroid: thyroid normal Resp Effort Inspection: normal respiratory effort GI Inspection: normal to inspection and non-distended Palpation: soft and no hepatosplenomegaly External Female Exam: abnormal external appearance (very narrow opening wtih guarding, hypertonus), normal appearance of the urethra and other (possible extra tissue but unclear due to limited exam) Urethra: normal appearance of the urethra Skin General: no rashes or lesions noted Coding Level of Care Code No Charge Diagnoses Dyspareunia due to medical condition in female N94.19 Pelvic floor dysfunction in female M62.89 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 recommend PEUA and partial hymenectomy, PFPT referral (2) Pelvic floor dysfunction in female: Status: Acute Comment: PFPT referral (3) Intact hymenal ring: Status: Acute Comment: plan surgical evaluation Plan After discussing the patient's diagnosis and treatment plan options, patient wishes to proceed with surgical management. I have discussed with the patient the risks, benefits, and alternatives of the procedure which include but are not limited to risks of anesthesia, bleeding, infection, possible damage to bowel, bladder, or surrounding va (more content not included)... Normal [facility] Type AND Screen - PAT ONLYon 10-16-2024 Ab SCREEN GEL Negative Normal [facility] Comment on above: Order Comment: Surge ry Date: 10/27/24 Reason for Laboratory Test PREOP [id number] No N N S PELVIC EXAM PARTIAL HYMENECTOMY Performed By: #### B TSPAT, L100.0500 #### [facility] [address] [place], [place], [address] ABO and Rh group Nom (Bld) Blood group B Rh(D) positive Normal [facility] Comment on above: Order Comment: Surge ry Date: 10/27/24 Reason for Laboratory Test PREOP [id number] No N N S PELVIC EXAM PARTIAL HYMENECTOMY Performed By: #### B TSPAT, L100.0500 #### [facility] [address] [place], [place], [address] [facility] Reporton 09-07-2024 [facility] Visit Report [facility] [address], [address] [place] [address] OFFICE VISIT Date of Service: 09/07/24 MR#: [id number] Acct: [id number] Name: ARSALAN BECERRA Rep #: [id number] : 1995 Provider: Dr. Layla campos MD Age/Sex: 28/F Location: [facility] Status: Signed Intake Vital Signs 07/22/24 08:22 09/07/24 09:17 Height 5 ft 2 in 5 ft 2 in Weight: 114 lb 121 lb BMI 20.8 22.1 BP 116/82 H 114/78 Intake Visit Reasons: PERF/NELSON CONSULT PER CB Center Rep Required: No Is patient in pain?: No Allergies No Known Allergies Allergy (Unverified 09/07/24 09:18) Medications ???Medication ???Instructions ???Recorded ???Confirmed ???Type escitalopram oxalate 5 mg tablet 5 mg PO QDAY 07/22/24 09/07/24 History (Lexapro) Is last menstrual period known: Yes Last Menstrual Period: 08/31/24 Post menopausal: No Patient : No : No PFSH Surgical History History of open heart surgery Family History Grandmother Diabetes Grandfather Diabetes Social History adopted: No current occupational status: unemployed sexually active: Yes Smoking Status: Never smoker alcohol intake: never substance use type: does not use caffeine: No seatbelt use: always do you feel safe at home: Yes additional social history: - Star HPI PERF/NELSON CONSULT PER CB Details: ARSALAN BECERRA is a 28 year old who presents for dyspareunia, intact hymenal ring. she has been tryingt o have intercourse for the last year with her and has been unable to have penetrative relations. she has never been able to use tmapons and has never had a pelvic exam. she has never had penetrative intercourse before. she has heavy painful menses worsening over the years, lasting 5 days, monthly Female Reproductive History Last Menstrual Period: 08/31/24 History 0 Elective abortions Hx Para 0 Spontaneous abortions Hx # Term Pregnancies Ectopic pregnancies Hx # Pregnancies Multiple births # of living children 0 ROS Const Constitutional: Denies fatigue, fever(s), headache(s), increased appetite, poor appetite, weight gain or weight loss Cardio Card: Denies chest pain Resp Resp: Denies cough or dyspnea GI GI: Reports as per HPI; Denies abdominal pain, constipation, nausea or vomiting : Reports as per HPI; Denies difficulty voiding, dysuria, nipple discharge, urinary frequency, urinary incontinence, urinary hesitancy, urinary urgency, vaginal discharge, vaginal dryness, vaginal odor or vaginal pruritus Skin Skin/Breast: Denies change in hair, breast mass, breast pain, breast skin changes or nipple discharge Exam Const General: cooperative, healthy appearing, comfortable, no acute distress and well developed Nutritional Appearance: average body habitus Orientation: alert HENMT Head: normal to inspection and normocephalic Neck Neck: normal visual inspection and trachea midline Thyroid: thyroid normal Resp Effort Inspection: normal respiratory effort GI Inspection: normal to inspection and non-distended Palpation: soft and no hepatosplenomegaly External Female Exam: abnormal external appearance (very narrow opening wtih guarding, hypertonus), normal appearance of the urethra and other (possible extra tissue but unclear due to limited exam) Urethra: normal appearance of the urethra Skin General: no rashes or lesions noted Coding Level of Care Code Off vis,est,level 4 Diagnoses Intact hymenal ring N89.6 Dyspareunia due to medical condition in female N94.19 Pelvic floor dysfunction in female M62.89 Assessment and Plan Assessment and Plan (1) Intact hymenal ring: Status: Acute Comment: plan surgical evaluation (2) Dyspareunia due to medical condition in female: Status: Acute Comment: due to pelvic floor hypertonus, narrow anatomy. recommend PEUA and partial hymenectomy, PFPT referral (3) Pelvic floor dysfunction in female: Status: Acute Comment: PFPT referral Plan After discussing the patient's diagnosis and treatment plan options, patient wishes to proceed with surgical management. I have discussed with the patient the risks, benefits, and alternatives of the procedure which include but are not limited to risks of anesthesia, bleeding, infection, possible damage to bowel, bladder, or surrounding vasculature which could lead to additional surgery to evaluate any complications. Patient agrees to procedure and wishes to proceed. ACOG/uptodate references given for additional information regarding procedure. 09/14/24 0711 Date (more content not included)... Normal [facility] Vital Signs Date Time Vital Sign Value Performing Clinician Jenise carrillo 08-04-2025 10:05-0400 Body height 157.[address] Bhargav Jernigan DO Work Phone: [facility] 08-04-2025 10:05-0400 Body mass index (BMI) [Ratio] 23.6 kg/m2 Dr. Bhargav Jernigan DO Work Phone: [facility] 08-04-2025 10:05-0400 Body weight 58.[address] Bhargav Jernigan DO Work Phone: [facility] 08-04-2025 10:05-0400 Diastolic blood pressure 81 mm[Hg] Dr. Bhargav Jernigan DO Work Phone: [facility] 08-04-2025 10:05-0400 Systolic blood pressure 115 mm[Hg] Dr. Bhargav Jernigan DO Work Phone: [facility] Encounters Encounter Date Encounter Type Care Provider Facility Start: 08-31-2025 Encounter for other preprocedural examination Layla [facility] Start: 08-25-2025 End: 08-25-2025 ambulatory Bhargav Jernigan [place] Start: 08-25-2025 End: 08-25-2025 ambulatory Talia Paulino Facility:[facility] Start: 08-04-2025 End: 08-04-2025 Patient encounter procedure Talia MARTINEZ -[facility] Work Phone: Start: 08-04-2025 End: 08-04-2025 Patient encounter status Talia MARTINEZ [facility] Start: 08-04-2025 End: 08-04-[address] Bhargav Jernigan DO Work Phone: -[facility] Start: 11-17-2024 [facility]: 11-16-[facility]24 End: 11-16-2024 ambulatory Layla Allen Facility:[facility] Start: 10-27-2024 ambulatory Layla Burden lity:[facility] Start: 10-27-2024 End: 10-27-2024 ambulatory Layla Allen Facility:[facility] Start: 10-16-2024 End: 10-16-2024 ambulatory Bhargav Jernigan Facility:[facility] Start: 10-16-2024 End: 10-16-2024 ambulatory Layla Allen Facility:[facility] Start: 09-07-2024 End: 09-07-2024 ambulatory Layla Allen Facility:[facility] Payers Date Payer Category Payer Self-pay 2024 Unknown [id number] Unknown [id number] 2.16.8 [id number] Unknown [id number] 2.16.8 [id number] Unknown [id number] 2.16.8 [id number] Unknown [id number] 2.16.8 [id number] Unknown [id number] 2.16.8 [id number] Unknown [id number] 2.16.8 [id number] Unknown [id number] 2.16.8 [id number] Unknown [id number] 2.16.8 [id number] Unknown [id number] 2.16.8 [id number] Unknown [id number] 2.16.8 [id number] Social History Date Type Detail Facility [facility]: [facility] Sex Female [facility] Start: 1995 Sex Assigned At Female [facility] Progress note 08-04-2025 Note Date & Type Note Facility 08-04-2025 Progress note [facility] Clinical Note 10-27-2024 Note Date & Type Note Facility 10-27-2024 Note [facility] Medical Records Department [address] [place] [address] History Physical Exam 10/27/24 1145 MR#: [id number] Acct: [id number] Name: ARSALAN DAMON Rep #: [id number] : 1995 28 From: Layla Allen MD PCP: Dr. Bhargav Jernigan, DO Status:[facility] Location: [place] [address] History and Physical Date of Admission: 10/27/24 Intake Vital Signs 09/07/2409:17 10/16/2413:17 10/16/2413:19 Height 5 ft 2 in 5 ft 2 in 5 ft 2 in Weight: 121 lb BMI 22.1 BP 114/78 Intake Visit Reasons: PEUA partial hymenectomy Center Rep Required: No Is patient in pain?: No Feel stressed/tense/nervous/anxious/difficulty sleeping: not at all Allergies No Known Allergies Allergy (Verified 10/16/24 13:20) Medications ???Medication ???Instructions ???Recorded ???Confirmed ???Type escitalopram oxalate 5 mg tablet 5 mg PO QDAY 07/22/24 10/16/24 History (Lexapro) Is last menstrual period known: Yes Last Menstrual Period: 08/31/24 Post menopausal: No Patient : No : No PFSH Medical History Anxiety Depression Anemia Easy bruising Migraine headache Non-smoker Hypoglycemia Surgical History History of open heart surgery Family History Grandmother DiabetesGrandfather Diabetes Social History adopted: No current occupational status: unemployed sexually active: Yes Smoking Status: Never smoker alcohol intake: never substance use type: does not use caffeine: No seatbelt use: always do you feel safe at home: Yes additional social history: - Star HPI PEUA partial hymenectomy Details: ARSALAN BECERRA is a 28 year old who presents for preop visit. SHe has a history of dyspareunia, intact hymenal ring. she has been tryingt o have intercourse for the last year with her and has been unable to have penetrative relations. she has never been able to use tmapons and has never had a pelvic exam. she has never had penetrative intercourse before. she has heavy painful menses worsening over the years, lasting 5 days, monthly Female Reproductive History Last Menstrual Period: 08/31/24 History 0 Elective abortions Hx Para 0 Spontaneous abortions Hx # Term Pregnancies Ectopic pregnancies Hx # Pregnancies Multiple births # of living children 0 ROS Const Constitutional: Denies fatigue, fever(s), headache(s), increased appetite, poor appetite, weight gain or weight loss Cardio Card: Denies chest pain Resp Resp: Denies cough or dyspnea GI GI: Reports as per HPI; Denies abdominal pain, constipation, nausea or vomiting : Reports as per HPI; Denies difficulty voiding, dysuria, nipple discharge, urinary frequency, urinary incontinence, urinary hesitancy, urinary urgency, vaginal discharge, vaginal dryness, vaginal odor or vaginal pruritus Skin Skin/Breast: Denies change in hair, breast mass, breast pain, breast skin changes or nipple discharge Exam Const General: cooperative, healthy appearing, comfortable, no acute distress and well developed Nutritional Appearance: average body habitus Orientation: alert HENMT Head: normal to inspection and normocephalic Neck Neck: normal visual inspection and trachea midline Thyroid: thyroid normal Resp Effort Inspection: normal respiratory effort GI Inspection: normal to inspection and non-distended Palpation: soft and no hepatosplenomegaly External Female Exam: abnormal external appearance (very narrow opening wtih guarding, hypertonus), normal appearance of the urethra and other (possible extra tissue but unclear due to limited exam) Urethra: normal appearance of the urethra Skin General: no rashes or lesions noted Coding Level of Care Code No Charge Diagnoses Dyspareunia due to medical condition in female N94.19 Pelvic floor dysfunction in female M62.89 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 recommend PEUA and partial hymenectomy, PFPT referral (2) Pelvic floor dysfunction in female: Status: Acute Comment: PFPT referral (3) Intact hymenal ring: Status: Acute Comment: plan surgical evaluation Plan After discussing the patient's diagnosis and treatment plan options, patient wishes to proceed with surgical management. I have discussed with the patient the risks, benefits, and alternatives of the procedure which include but are not limited to risks of anesthesia, bleeding, infection, possible (more content not included)... [facility] Evaluation note Note Date & Type Note Facility Evaluation note Diagnosis Onset Date Resolution Encounter for routine gynecological examination noneactive August 04 10:02am [facility] Work Phone: Progress note Note Date & Type Note Facility Progress note Note Date/Time August 04, 2025 10:39am [facility] [address], [address] [place] [address] OFFICE VISIT Date of Service: 08/04/25 MR#: [id number] Acct: [id number] Name: ARSALAN BECERRA Rep #: [id number] : 1995 Provider: JUAN Paulino Age/Sex: 29/F Location: [facility] Status: Signed Intake Vital Signs 11/16/24 11:24 08/04/25 10:05 Height 5 ft 2 in 5 ft 2 in Weight: 129 lb 129 lb 7 oz BMI 23.6 23.6 BP 109/74 115/81 H Pulse 72 Pulse Source Monitor 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: No Is patient in pain?: No Allergies No Known Allergies Allergy (Verified 08/04/25 10:05) Medications ?Medication ?Instructions ?Recorded ?Confirmed ?Type NK 08/04/25 08/04/25 History Is last menstrual period known: Yes Last Menstrual Period: 08/03/25 Post menopausal: No Patient : No : No Control Method: none PFSH Medical History Anxiety Depression Anemia Easy bruising Migraine headache Non-smoker Hypoglycemia Surgical History History of open heart surgery Family History Grandmother Diabetes Grandfather Diabetes Social History adopted: No current occupational status: unemployed sexually active: Yes Smoking Status: Never smoker alcohol intake: never substance use type: does not use caffeine: No seatbelt use: always do you feel safe at home: Yes additional social history: - Star History 0 Elective abortions Hx Para 0 Spontaneous abortions Hx # Term Pregnancies Ectopic pregnancies Hx # Pregnancies Multiple births # of living children 0 HPI Encounter for routine gynecological examination Details: ARSALAN DAMON is a 29 year old who presents for annual exam. She reports since hymenectomy things have improved with intercourse; able to have sex with insertion however reports it still "feels weird". She has not been in PFPT sinceJune. She reports overall improvement however. She states prior to her menses starting she noted some vaginal itching. Last PAP: 2024; unsatisfactory. HPV neg. History of abnormal PAP: no Last mammogram: age 42 History of abnormal mammogram: n/a Colon cancer screening: age 47 Other preventative health care screenings: Dr. Jernigan; PCP Female Reproductive History Last Menstrual Period: 08/03/25 Cycle Length: 21-35 Bleeding Duration: 3 Questions: metrorrhagia: No, sexually active: Yes, dyspareunia: Yes and PCB: No ROS Const Constitutional: Denies chills, fatigue, fever(s), headache(s) or weight loss Eyes Eyes: Denies change in vision ENT ENT: Denies dizziness Resp Resp: Denies cough GI GI: Reports constipation; Denies abdominal pain or nausea : Reports vaginal pruritus (prior to start of menses); Denies difficulty voiding, dysuria, hematuria, nipple discharge, pelvic pain, prolapse symptoms, urinary incontinence, vaginal discharge, vaginal dryness or vaginal odor Skin Skin/Breast: Denies alopecia, rash, breast mass, breast pain, breast skin changes or nipple discharge Neuro Neuro: Denies dizziness Psych Psych: Denies anxiety or depression Endo Endo: Denies cold intolerance, excessive sweating or heat intolerance Exam Const General: cooperative, healthy appearing, comfortable, no acute distress, well groomed and well hydrated Nutritional Appearance: well nourished Orientation: alert, awake and oriented x3 HENMT Head: normal to inspection and normocephalic Ears: hearing grossly normal bilaterally and external ears normal Nose: external nose normal Face and sinus: normal facial exam Eyes General: appearance normal, both eyes and all related structures Neck Neck: normal visual inspection, full ROM and no lymphadenopathy Thyroid: thyroid normal Chest Chest palpation & inspection: normal inspection of the chest Breast inspection: normal inspection of the breasts and normal inspection of theaxillae Breast palpation: normal palpation of the breasts, normal palpation of the axillae and no axillary lymphadenopathy Resp Effort & Inspection: normal respiratory effort, able to speak in complete sentences and symmetric chest movement GI Inspection: normal to inspection Palpation: soft and no hepatosplenomegaly General: deferred (per patient; on menses. ) Skin General: no rashes or lesions noted Neuro General: patient alert, patient awake, patient oriented x3 and moves all extremities Psych Appearance: grossly normal Mental Status: mental status grossly normal Affect: normal affect Speech and Movement: speech and movement normal Attitude: cooperative Coding Level of Care Code Established Pt Off vis,est,prev 18-39yrs Patient Type Established Diagnoses Encounter for routine gynecological examination Z01.419 Assessment and Plan Assessment and Plan (1) Encounter for routine gynecological examination: Plan: Breast exam complete. PAP due: unable to do today due to menses. Will RTO to have completed in 1 week. Mammogram due: routine screenings age 42 Advised self breast exams monthly. Contraception: none-okay with Advised incorporating healthy dietary choices such as increase in lean meats, fruits/vegetables, less processed food/sat fat/trans fats. Increase exercise to 30 minutes per day/5 days a week. This can include both weight bearing exercisesand/or brisk walking. Follow up with PCP for further preventative health screenings. 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 Call office sooner with questions or concerns. Plan RTO in 1 week for PAP only; if still symptomatic with vaginal itching obtain culture at this visit as well. Plan Details Follow Up: 1 Week (pelvic/PAP only. 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 Bhargav Jernigan DO Primary care physician Active Team Status: Inactive Member Role/Relationship Status Dates Dr. Bhargav Jernigan DO Primary care physician Active Start: August 04, 2025 End: August 04, 2025 Dr. Bhargav Jernigan DO Referring Provider Active Start: August 04, 2025 End: August 04, 2025 JUAN Minor Attending physician Active Start: August 04, 2025 End: August 04, 2025 Goals (unrecognized section and content) Goals may be documented in a n alternate section INFORMATION SOURCE (unrecogn ized section and content) DATE CREATED AUTHOR 09/02/2025 [facility] FOR RECORDS PERTAINING TO PATIENTS WHO ARE OR HAVE BEEN ENROLLED IN A CHEMICAL DEPENDENCY/SUBSTANCEABUSE PROGRAM, SOME INFORMATION MAY BE OMITTED. This clinical summary was aggregated from multiple sources. Caution should be exercised in using it in the provision of clinical care. This summary normalizes information from multiple sources, and as a consequence, information in this document may materially change the coding, format and clinical context of patient data. In addition, data may be omitted in some cases. CLINICAL DECISIONS SHOULD BE BASED ON THE PRIMARY CLINICAL RECORDS. [facility]. provides no warranty or guarantee of the accuracy or completeness of information in this document.
[2025-09-17 12:41] LABS: Cholesterol 149 mg/dL (<=200); Low Density Lipoprotein Calc. 78 mg/dL; Triglycerides 54 mg/dL; Very Low Density Lipoprotein 11 mg/dL (5-40); cholesterol:hdl ratio screen 2.49
== END | disposition home or self-care (01) ==
LOC: MTLAB 09:30
PROVIDERS: PCP Family Medicine; Referring Provider Family Medicine; Visit Provider Family Medicine
DX: Z00.00 Encounter for general adult medical examination without abnormal findings (principal)
CPT/HCPCS: 36415; 80061; 83036